=== PATIENT | female | born 1940 | race Caucasian/White ===

== ENCOUNTER 2020-06-19 07:24 | Day surgery (SDC) | payer MEDICARE, OTHER, SELFPAY ==
--- NOTE | 2020-06-16 13:35 | HP.PCM_ITS ---
- Problem List (1) PMB (postmenopausal bleeding) Status: Acute History and Physical Date of Admission: 06/19/20 DATE OF SERVICE: June 16, 2020 ? PROBLEM:?persistent PMB ? DIAGNOSIS:?persistent PMB ? PAST SURGICAL HISTORY:? PAST SURGICAL HISTORYExpand by Default PAST SURGICAL HISTORY Procedure Laterality Date ? D+C ? ? ? after a miscarriage at age 43 ? ORAL SURGERY PROCEDURE ? ? ? wisdom teeth and dental implants ? PAST SURGICAL HISTORY OF ? ? ? fatty tumor removal ? PAST MEDICAL HISTORY:? PAST MEDICAL HISTORYExpand by Default PAST MEDICAL HISTORY Diagnosis Date ? Celiac disease ? ? Lactose intolerance in adult ? ? SUBJECTIVE:?Having daily pink bleeding for 1.5 years. Having pelvic pain for several months as well.? ? SOCIAL HISTORY:? SOCIAL HISTORYExpand by Default Social History ? Tobacco Use ? Smoking status: Never Smoker ? Smokeless tobacco: Never Used Vaping Use ? Vaping Use: Never used Substance Use Topics ? Alcohol use: Not Currently ? Drug use: Never ? ALLERGIESExpand by Default ALLERGIES Allergen Reactions ? Alcohol ? Intolerance ? ? Vaginal insert contained alcohol & caused burning sensation ? Gluten ? Other: See Comments ? ? Upset stomach ? Milk ? Intolerance ? Soy ? GI Upset ? ? diarrhea ? Perfume ? Other: See Comments ? ? Stated she gets bronchitis, GI upset, PECK Current Outpatient Medications on File Prior to Visit Medication Sig ? WILLOW BARK-RED CLOVER-BORAGE ORAL Take 1 capsule by mouth as needed. ? calcium carbonate (CALCIUM 500 ORAL) Take by mouth. w ? cyanocobalamin (VITAMIN B-12) 1,000 mcg tab Take by mouth. ? cholecalciferol, vitamin D3, (VITAMIN D3 ORAL) Take 500 mg by mouth once daily. ? Vitamin A 8,000 unit capsule Take 8,000 Units by mouth once daily. ? vitamin B complex (B COMPLEX-100 ORAL) Take by mouth. ? goldenseal root (GAN SEAL, GOLDENSEAL, ORAL) Take by mouth. No current facility-administered medications on file prior to visit. ? ? OBJECTIVE: ? VITALS: BP (!) 86/46 ? Pulse 86 ? Resp 12 ? Ht 5' 4.75 (1.645 m) ? Wt 112 lb (50.8 kg) ? BMI 18.78 kg/m? ? HEENT: ?Normocephalic, atraumatic, Mucus membranes moist without lesions. ? NECK: ???Soft and Supple. ?No adenopathy , thyromegaly or bruits. ? SKIN: No lesions. ? CHEST: Clear to auscultation. ?No wheezes or rales. ?Good air exchange. ? HEART: Regular rate and rhythm ?No S3 or S4. ?No gallops or rubs. ? BACK: Nontender with no CVA tenderness. ? ABDOMEN: Soft, non-tender, non-distended, no masses, no hepatosplenomegaly. ? LOWER EXTREMITIES: There was no pitting edema, no palpable cords and no skin changes.? ? EMB 10/23/2019 FINAL DIAGNOSIS 1. Endometrium, biopsy (A) - Benign endometrial epithelium.. 2. Cervix, polypectomy (B) - Scant benign endocervical epithelium. ? Pelvic US 09/27/2019 Impression ========= uterus normal size and contour. Endometrial thickness 4.7 mm. There are multiple tiny calcifications throughout the uterus. There are no gross endometrial lesions identified. Neither ovary is visualized No free fluid in the cul-de-sac Recommendations follow-up as clinically indicated ? ASSESSMENT:?persistent PMB ? PLAN:?Discussed hysteroscopy D&C in detail.?The rationale for the proposed surgery was discussed in addition to risks, benefits, and alternatives. ?General pre- and post-operative care was reviewed. ?Questions were answered. ?After discussion, the patient indicated a desire to proceed with the planned surgery. ? At the end of the visit the patient states she has been using OTC progesterone cream for many years. Recommended stopping hormones at this time.? ? Tracey Lam,?DO
--- NOTE | 2020-06-19 | IMM_PTH ---
PATIENT: DONALD SOLANO LOC: [facility] – [place] U#:[id number] AGE/SX: 80/F ROOM: RE06/19/[address]: Dr. Tracey Lam DO : 1940 BED: DIS: 06/19/2020 SPEC #: [id number] RECD: 06/20/20 11:13 STATUS: GIOVANY REQ #: [id number] JUANPABLO: 06/19/20 00:[address]: Tracey Lam DEPT: IMMUNOHISTOCHEMISTRY RECD BY: Maddi Hawk ENTERED: 06/20/20 11:16 SP TYPE: IMMUNO OTHR DR: Dr. Qian Cooper DO Tissues: Endocervical Procedures: RCC (add) SMA (add) NAPSIN A (add) CA-125 (add) CEA (add) CK14 (add) CK20 (add) CK5-6 (add) CK7 (add) CK8 (add) MULLINS-2 (add) DESMIN (add) GABRIELLE (add) HEP PAR (add) KI-67 (add) MACRO (add) P16 (add) P53 (add) CT (add) TTF1 (add) Vimentin (add) SMM (add) Pankeratin (add) P40 (add) CDX2 (add) CD44 (add) ER (initial) S-100 (add) PHYSICIAN & INSTITUTION [place] [id number] SPECIMEN INFORMATION: Tissue Source: Endocervical curettings Clinical Info: Postmenopausal bleeding Specimen Number: [id number] CPT code: 30644, 62567 x27 METHODOLOGY: Deparaffinized sections of prefer/formalin-fixed tissue or PAP/DQ stained slides are incubated with monoclonal/polyclonal antibodies/oligonucleotide probes. Localization is made via biotin free immunoperoxidase method. Appropriate controls are performed and reacted as expected. Results on target cell population are indicated in the following table: RESULTS: ANTIBODY / CLONE RESULT ER (6F11) negative CT (1E2) negative AE1-3 (AE1/AE3/PCK26) positive CK7 (OV-TL12/30) positive CK8 (99tzwyJ94) positive CK20 (KS20.8) negative MULLINS-2 (SP21) positive, dim CDX2 ([id number]) negative Vimentin (V9) negative Macro (HAM-56) negative Actin (1A4) negative Myosin (simms1) negative Desmin (CE-R-11) negative S-100 (4C4.9) negative TTF-1 (8G7G3/1) negative Napsin A (Rabbit Polyclonal) negative HepPar (OCh1E5) negative RCC (PN-15) negative anti-CD44 (SP37) positive CK5-6 (D5 & 1684) positive CK14 (LL002) positive P40 (BC28) positive CEA (11-7/TF-3HB-1) negative CA125 (OC125) negative P53 (DO-7) negative Ki-67 (30-9) positive, 40% GABRIELLE (E29) positive, focal P16 (E6H4) positive, focal, patchy These tests were developed and their performance characteristics determined by [facility]. They may not have been cleared or approved by the U.[place]. Food and Drug Administration. The FDA has determined that such clearance or approval is not necessary. The above immunohistochemical/dualISH markers are ordered and reviewed by the Pathologist. INTERPRETATION: Endocervical curettings: Fragments of squamous cell carcinoma. AM:massiel 06/23/2020
--- NOTE | 2020-06-19 | ECC_PTH ---
PATIENT: DONALD SOLANO [place] [facility] [place][id number] AGE/SX: 80/F ROOM: RE06/19/[address]: Dr. Tracey Lam DO : 1940 BED: DIS: 06/19/2020 SPEC #: [id number] RECD: 06/19/20 10:51 STATUS: GIVOANY REQ #: [id number] JUANPABLO: 06/19/20 00:[address]: Tracey Lam DEPT: SURGICAL PATHOLOGY RECD BY: Ethan Marcos ENTERED: 06/19/20 10:51 SP TYPE: MARILIA ACEVEDO DR: Dr. Qian Copoer DO Tissues: Endocervical Procedures: Special Stain Group II Mucicarmine Stain (control) Surgery Specimen Level IV HEADER OPERATION: Attempted hysteroscopy, dilation and curettage PRE-OP DIAGNOSIS: Postmenopausal bleeding TISSUE SUBMITTED: Endocervical curettings MICROSCOPIC DIAGNOSIS Endocervix, curettings: Fragments of squamous cell carcinoma. See comment. AM:massiel 06/20/2020 COMMENT Immunohistochemistry ([id number]) supports the above diagnosis. Mucin stain with matched control was used in the evaluation of this case. Case has been reviewed in consultation with Dr. Hunt who concurs with the above diagnosis. JACY:SATYA MICROSCOPIC DESCRIPTION Slides are reviewed. GROSS DESCRIPTION Received in fixative is one container labeled with the patient's name and designated endocervical curettings. The specimen consists of multiple fragments of hemorrhagic soft tissue that in aggregate measure 1.5 x 1 x 0.1 cm. The specimen is totally submitted in one cassette. / SATYA:massiel 06/19/20 TC:0 CPT: 54765, 26969
[2020-06-19 08:02] VITALS: BP 118/70; PULSE 72; RESP 18; TEMP 36.6; O2SAT 94; BMI 19.4
[2020-06-19 08:10] LABS: Hematocrit 39.1 % (37-47); Hemoglobin 12.8 g/dL (12.0-15.0); Mean Corp Hgb Conc 32.7 g/dL (32-36); Mean Corpuscular Hgb 33.8 pg (27.0-32.0); Mean Corpuscular Volume 103.2 fL (81-99); Platelet Count 299 K/mm3 (150-450); RBC Distribution Width CV 13.4 % (11.6-14.6); RBC Distribution Width SD 50.9 fl (35.1-43.9); Red Blood Count 3.79 M/mm3 (4.2-5.4); White Blood Count 7.6 K/mm3 (4.4-11.0)
[2020-06-19] MEDS: Lactated Ringers 1,000 ML 100 ML IV (08:14)
[2020-06-19 08:20] LABS: Anion Gap 6 (5-15); BUN 6 mg/dL (7-18); BUN/Creat Ratio 7.4 RATIO (10-20); Calcium,Total 8.8 mg/dL (8.5-10.1); Chloride 107 mmol/L (98-107); Creatinine, Serum 0.81 mg/dL (0.55-1.02); EST Glomerular Filtration Rate 73 mL/min (>60); Est Glom Filt Rate - Afr Amer 88 mL/min (>60); Estimated Creatinine Clearance 46.36 ml/min; Glucose 87 mg/dL (74-106); Potassium 3.7 mmol/L (3.5-5.1); Sodium Level 138 mmol/L (136-145)
[2020-06-19] MEDS: Lidocaine 1% /Epi 1:100 (20ml) 20 ML Vial (09:22)
--- NOTE | 2020-06-19 09:42 | DCINST_ITS ---
Discharge Diet: No Restrictions Discharge Activity: [place] [address] - more than 24 hours after surgery May resume sexual activity in: 1 week - no intercourse, tampons, hot tubs, tub baths, pools for 1 week Weight Bearing Status: Weight bearing as tolerated Lifting Restrictions: No restrictions Call your doctor if you observe: Fever of 101 or Higher, Inability to urinate, Inability to have a bowel movement, Using more than one pad per hour, Shortness of breath, Dizziness, Fainting spells, Swelling in the ankles, Chest pain, Increased palpitations (irregular heartbeat), Calf discomfort, Uncontrolled pain Allergies/Adverse Reactions: Allergies alcohol Allergy (Verified 06/12/20 14:26) Other gluten Allergy (Verified 06/12/20 14:26) Upset Stomach Milk Containing Products Allergy (Verified 06/12/20 14:26) Other INFECTION IN GUMS perfume Allergy (Verified 06/12/20 14:39) Other soy Allergy (Verified 06/12/20 14:26) Diarrhea Medications to take at Discharge [place] 2 tab PO DAILY 06/12/20 Orders to be completed after discharge: Type & Screen - PAT ONLY Time Frame: 06/19/20, Facility: [facility], Location: Laboratory Primary Care Physician: Qian Cooper DO [Primary Care Provider] - Test Results: Test results from this visit will be discussed in further detail at your follow- up appointment, if applicable. Please Follow Up With: Tracey Lam DO When: 1 week
--- NOTE | 2020-06-19 09:44 | OP.PCM_ITS ---
Problem List (1) PMB (postmenopausal bleeding) Status: Acute Report of Operation Date of Procedure: 06/19/20 Pre-Operative Diagnosis: PMB Post-Operative Diagnosis: PMB, cervical stenosis Surgery/Procedure Performed:: Attempted hysteroscopy, endocervical curettings Description of Surgical Findings:: Stenotic cervix. The external os was slightly dilated from the cytotec. Internal os was stenotic. The vagina and cervix were atrophic, and the cervix was very friable. No descent of cervix and uterus. A false track was created and visualized with the hysteroscope. Type of Anesthesia:: Local MAC Special Medications: None Specimen's removed: Endocervical curettings Drains: None Estimated Blood Loss (mL): < 50 cc Fluids Replaced: See anesthesia record Description of Procedure: Patient was taken to the operating room where MAC anesthesia was found to be adequate. She was prepped and draped in the dorsal lithotomy position using yellowfin stirrups. Vulvovaginal atrophy was noted. A very narrow vaginal in troitus was noted. There was no descent of the uterus and cervix. Given the narrow introitus and atrophy, the cervix was difficult to visualize. A right angle was placed in the posterior vagina and anterior vagina to expose the cervix. The anterior lip of the cervix and the posterior lip of the cervix were each grasped with a ring forceps. A single-tooth tenaculum was unable to be placed given the friability of the cervix. The cervix was serially dilated and the uterus was sounded to 9 cm. Hysteroscope was placed and a false tract was noted. Hysteroscope was then removed. Endocervical curettings were performed and sent to pathology for review. All instruments were removed from the vagina. Bleeding was hemostatic. A vaginal sweep was performed. Instrument and sponge counts were correct. Patient was taken to recovery room in stable condition. Grafts/Implants Used: None - Complications None - Admit VTE Documentation VTE Present on Admission: No VTE Mechan Device Prophylaxis: SCD's VTE Pharm Prophylaxis ordered?: No
[2020-06-19 09:50] VITALS: BP 118/70; BP 136/72; PULSE 91; RESP 16; TEMP 37; O2SAT 97
[2020-06-19 09:55] VITALS: BP 118/70; BP 130/75; PULSE 90; RESP 16; O2SAT 96
[2020-06-19 10:00] VITALS: BP 118/70; BP 134/75; PULSE 93; RESP 16; O2SAT 95
[2020-06-19 10:05] VITALS: BP 118/70; BP 128/73; PULSE 85; RESP 16; TEMP 37; O2SAT 97
[2020-06-19 11:01] VITALS: BP 118/61; BP 118/70; PULSE 76; RESP 18; TEMP 36.3; O2SAT 96
== END 2020-06-19 11:13 | disposition home or self-care (01) ==
LOC: SDC 07:24 → AC 07:24
PROVIDERS: PCP Internal Medicine; Referring Provider Obstetrics & Gynecology; Visit Provider Obstetrics & Gynecology
PROC: 0UDB8ZZ Extraction of Endometrium, Via Natural or Artificial Opening Endoscopic (ICD-10-PCS; CPT 58558; principal; 2020-06-19 08:50)
DX: C53.0 Malignant neoplasm of endocervix (principal); N95.0 Postmenopausal bleeding; N88.2 Stricture and stenosis of cervix uteri; Z20.822 Contact with and (suspected) exposure to COVID-19
CPT/HCPCS: 58558; 80048; 85027; 86850; 86900; 86901; 87426; 88305; 88313; 88341; 88342; C9803; J7120; J2405